=== PATIENT | female | born 1975 | race Caucasian/White ===

== ENCOUNTER → 2017-06-18 | Outpatient (CLI) | payer OTHER | LOC: FIMAGING 08:30 | PROVIDERS: ATTEND Family Medicine | CPT/HCPCS: G0202 ==

== ENCOUNTER 2018-12-07 09:39 | Inpatient (IN) | payer OTHER ==
[2018-12-07] MEDS ORDERED: methylPREDNISolone SOD SUCC 125 MG/2 ML VIAL IVP ONE (10:23)
[2018-12-07] MEDS ORDERED: IPRATROPIUM/ALBUTEROL 3 ML DEYVIAL IH ONE (10:23)
--- NOTE | 2018-12-07 10:25 | EDPHY ---
H & P Stated Complaint: N/V/D c cough (prod brown) x 1wk, denies bleeding, sent urgent care Time Seen by Provider: 12/07/18 10:11 HPI/ROS: CHIEF COMPLAINT: Cough x1 week HISTORY OF PRESENT ILLNESS: 43-year-old immunocompetent female with no history of reactive airways disease, daily tobacco abuse complaining of 8 days of productive cough, dyspnea, sore throat, myalgias. No influenza vaccination this season. No rash. No nausea or vomiting. No muscular flaccidity or weakness. No paralysis. PRIMARY CARE PROVIDER:Dr. Melissa Beyer REVIEW OF SYSTEMS: 10 systems reviewed and negative with the exception of the elements mentioned in the history of present illness PAST MEDICAL & SURGICAL HISTORY: no seasonal influenza vaccination.. No history of chronic respiratory distress. SOCIAL HISTORY: Daily tobacco abuse PHYSICAL EXAM (Prior to examination, patient consented to physical exam, hands were washed and my usual and customary physical exam procedures followed) 1) GENERAL: Well-developed, well-nourished, alert and oriented. Appears to be in no acute distress. 2) HEAD: Normocephalic, atraumatic 3) HEENT: Pupils equal, round, reactive to light bilaterally. Sclera anicteric. Nasopharynx, oropharynx, clear, no lesions. Moist Mucous membranes. No tonsillar enlargement or exudate Ears bilaterally with normal tympanic membranes. No evidence of otitis media otitis externa 4) NECK: Full range of motion, no meningeal signs. 5) LUNGS: Clear auscultation bilaterally, no wheezes, no rhonchi, no retractions. 6) HEART: Regular rate and rhythm, no murmur, no heave, no gallop. 7) ABDOMEN: No guarding, no rebound, no focal tenderness, negative McBurney's, negative Diaz's, negative Rovsing's, negative peritoneal sign, 8) MUSCULOSKELETAL: Moving all extremities, no focal areas of tenderness, no obvious trauma. No peripheral edema or discoloration. 9) BACK: No CVA tenderness, no midline vertebral tenderness, no fluctuance, no step-off, no obvious trauma, no visual or palpable abnormality. 10) SKIN: No rash, no petechiae. 11) Psychiatric: Patient is oriented X 3, there is no agitation. DIFFERENTIAL DIAGNOSIS: In no particular order including but limited to bronchitis, pneumonia, hypoxemia - Personal History Current Tetanus/Diphtheria Vaccine: No Tetanus Vaccine Date: 2006 - Medical/Surgical History Hx Asthma: No Hx Chronic Respiratory Disease: No Hx Diabetes: No Hx Cardiac Disease: No Hx Renal Disease: No Hx Cirrhosis: No Hx Alcoholism: No Hx HIV/AIDS: No Hx Splenectomy or Spleen Trauma: No Other PMH: med hx-bipolar. surg-none - Social History Smoking Status: Current some day smoker Constitutional: Initial Vital Signs Temperature (C) 36.8 C 12/07/18 09:53 Heart Rate 118 H 12/07/18 09:53 Respiratory Rate 20 12/07/18 09:53 Blood Pressure 98/71 L 12/07/18 09:53 O2 Sat (%) 83 L 12/07/18 09:53 O2 Delivery Mode Room Air O2 (L/minute) 3 Allergies/Adverse Reactions: No Known Allergies Allergy (Verified 12/07/18 09:52) Home Medications: Medication Instructions Recorded ARIPiprazole [Abilify] 15 mg PO DAILY 01/11/16 lamoTRIgine [LamICTAL 100 MG (*)] 300 mg PO DAILY 01/11/16 Amphet Asp and D/Amphet [Adderall 40 mg PO BID@,14 PRN 12/07/18 20 mg (*)] Ibuprofen [Motrin (*)] 400 mg PO DAILY PRN 12/07/18 LORazepam [Ativan 2 mg tab] 2 mg PO DAILY PRN 12/07/18 Valacyclovir HCl [Valtrex] 1,000 mg PO DAILY 12/07/18 Medical Decision Making - Diagnostics Imaging Results: Imaging Impressions Chest X-Ray 12/07/18 10:14 Impression: Bronchitis. Images reviewed myself ED Course/Re-evaluation: 10:25 a.m.: I have evaluated the patient. Discussed case with secondary supervising physician Dr. Yuan in the ER. Patient maintaining saturations of 83% on room air with bibasilar rales on exam, no history of influenza vaccination. Will plan on breathing treatment, Solu-Medrol, chest x-ray, fluids , more than likely admission of the patient's saturations do not improve. She is mentating clearly at this time. Doubt meningitis. 11:30 a.m.: Re-evaluation after DuoNeb treatment, feeling improvement. She has received IV Solu-Medrol. The patient was taken off of supplemental oxygen and pulse oxygenation was 83% while at rest. Will plan on admission. She is mentating clearly. 11:40 a.m.: Consultation with hospitalist, admit to hospitalist service - Data Points Laboratory Results: Laboratory Results 12/07/18 10:25 12/07/18 10:25 12/07/18 12/07/18 12/07/18 10:25 10:25 10:25 WBC 10.14 10^3/uL H 10^3/uL (3.80-9.50) RBC 4.83 10^6/uL 10^6/uL (4.18-5.33) Hgb 15.7 g/dL g/dL (12.6-16.3) Hct 45.5 % % (38.0-47.0) MCV 94.2 fL fL (81.5-99.8) MCH 32.5 pg pg (27.9-34.1) MCHC 34.5 g/dL g/dL (32.4-36.7) RDW 12.3 % % (11.5-15.2) Plt Count 279 10^3/uL 10^3/uL (150-400) MPV 10.0 fL fL (8.7-11.7) Neut % (Auto) 70.1 % % (39.3-74.2) Lymph % (Auto) 18.6 % % (15.0-45.0) Garfield % (Auto) 7.9 % % (4.5-13.0) Eos % (Auto) 0.1 % L % (0.6-7.6) Baso % (Auto) 0.8 % % (0.3-1.7) Nucleat RBC Rel Count 0.0 % % (0.0-0.2) Absolute Neuts (auto) 7.11 10^3/uL H 10^3/uL (1.70-6.50) Absolute Lymphs (auto) 1.89 10^3/uL 10^3/uL (1.00-3.00) Absolute Monos (auto) 0.80 10^3/uL 10^3/uL (0.30-0.80) Absolute Eos (auto) 0.01 10^3/uL L 10^3/uL (0.03-0.40) Absolute Basos (auto) 0.08 10^3/uL 10^3/uL (0.02-0.10) Absolute Nucleated RBC 0.00 10^3/uL 10^3/uL (0-0.01) Immature Gran % 2.5 % H % (0.0-1.1) Immature Gran # 0.25 10^3/uL H 10^3/uL (0.00-0.10) RBC/WBC/PLT Morphology TNP Platelet Estimate TNP PT 13.6 SEC SEC (12.0-15.0) INR 1.02 (0.83-1.16) APTT 23.2 SEC SEC (23.0-38.0) VBG Lactic Acid Sodium Potassium Chloride Carbon Dioxide Anion Gap BUN Creatinine Estimated GFR Glucose Calcium Total Bilirubin Beta HCG, Qual NEGATIVE 12/07/18 12/07/18 10:25 10:00 WBC RBC Hgb Hct MCV MCH MCHC RDW Plt Count MPV Neut % (Auto) Lymph % (Auto) Garfield % (Auto) Eos % (Auto) Baso % (Auto) Nucleat RBC Rel Count Absolute Neuts (auto) Absolute Lymphs (auto) Absolute Monos (auto) Absolute Eos (auto) Absolute Basos (auto) Absolute Nucleated RBC Immature Gran % Immature Gran # RBC/WBC/PLT Morphology Platelet Estimate PT INR APTT VBG Lactic Acid 1.0 mmol/L mmol/L (0.7-2.1) Sodium 135 mEq/L mEq/L (135-145) Potassium 3.5 mEq/L mEq/L (3.5-5.2) Chloride 99 mEq/L mEq/L (97-110) Carbon Dioxide 26 mEq/l mEq/l (22-31) Anion Gap 10 mEq/L mEq/L (6-14) BUN 10 mg/dL mg/dL (7-23) Creatinine 0.8 mg/dL mg/dL (0.6-1.0) Estimated GFR > 60 Glucose 109 mg/dL H mg/dL (70-100) Calcium 8.9 mg/dL mg/dL (8.5-10.4) Total Bilirubin 0.7 mg/dL mg/dL (0.1-1.4) Beta HCG, Qual Microbiology Results: MICROBIOLOGY 12/07/18 10:50 Nasal, Sinus - Swab Respiratory Panel (PCR) - Final No Organism Detected By Pcr Medications Given: Discontinued Medications Albuterol/Ipratropium (Duoneb) 3 ml IH EDNOW ONE Stop: 12/07/18 10:24 Last Admin: 12/07/18 10:37 Dose: 3 ml Sodium Chloride (Ns) 1,000 mls @ 0 mls/hr IV ONCE ONE PRN Reason: Wide Open Stop: 12/07/18 11:36 Last Admin: 12/07/18 11:53 Dose: 1,000 mls Methylprednisolone Sodium Succinate (Solu-Medrol) 125 mg IVP EDNOW ONE Stop: 12/07/18 10:24 Last Admin: 12/07/18 10:37 Dose: 125 mg Departure - Departure Disposition: [facility] Inpatient Acute Clinical Impression: Bronchitis, Hypoxia Condition: Fair
[2018-12-07 10:54] LABS: PLATELET COUNT 279 10^3/uL (150-400)
[2018-12-07 11:04] LABS: INR 1.02 (0.83-1.16); PROTIME(PATIENT) 13.6 SEC (12.0-15.0)
[2018-12-07] MEDS ORDERED: NS 1,000 ML IV ONE (11:35)
--- NOTE | 2018-12-07 12:35 | PDGENHP ---
History and Physical - Chief Complaint shortness of breath - History of Present Illness The patient is a very pleasant 43-year-old female with past medical history bipolar disorder, anxiety, tobacco abuse who presented to the emergency room with the complaints of worsening shortness of breath. She says that her symptoms started last with an upper respiratory tract infection. At that time she had a cough that was dry then she developed a sore throat. She then developed severe nausea vomiting and diarrhea that persisted until yesterday. She also complains of a sinus headache as well. Last night her shortness of breath worsened and she said that she felt very anxious like she could not breathe. Her symptoms were not positional and were present whether she was sitting up or lying flat. She says normally she is able to get her panic attacks under control with either Ativan or calming herself down and she was not able to do so last night and so this morning decided to come to the emergency room. She said that she coughed so hard that her ribs hurt but otherwise denied any chest pain, chills, fevers, abdominal pain or other symptoms. she denied any sick contacts or recent travel. History Information - Allergies/Home Medication List Allergies/Adverse Reactions: No Known Allergies Allergy (Verified 12/07/18 09:52) Home Medications: ARIPiprazole [Abilify] 15 mg PO DAILY 01/11/16 [Last Taken 12/07/18] lamoTRIgine [LamICTAL 100 MG (*)] 300 mg PO DAILY 01/11/16 [Last Taken 12/07/18] Amphet Asp and D/Amphet [Adderall 20 mg (*)] 40 mg PO BID@ PRN 12/07/18 [ Last Taken 1 Week Ago ~11/30/18] Ibuprofen [Motrin (*)] 400 mg PO DAILY PRN 12/07/18 [Last Taken 12/07/18] LORazepam [Ativan 2 mg tab] 2 mg PO DAILY PRN 12/07/18 [Last Taken Unknown] Valacyclovir HCl [Valtrex] 1,000 mg PO DAILY 12/07/18 [Last Taken 12/07/18] I have personally reviewed and updated: family history, medical history, social history, surgical history - Past Medical History Additional medical history: Bipolar disorder, panic attacks, HSV - Surgical History Additional surgical history: none - Family History Positive for: non-pertinent - Social History Smoking Status: Current some day smoker Tobacco Use: Greater than 1 pack/day Alcohol Use: Occasionally Drug Use: Marijuana Review of Systems Review of Systems: ROS: 10pt was reviewed & negative except for what was stated in HPI & below Physical Exam Physical Exam: Temp Pulse Resp BP Pulse Ox 36.8 C 101 H 16 107/91 H 93 12/07/18 09:53 12/07/18 11:53 12/07/18 11:53 12/07/18 11:53 12/07/18 11:53 O2 (L/minute) 2 Constitutional: no apparent distress, appears nourished, not in pain Eyes: PERRL, anicteric sclera, EOMI Ears, Nose, Mouth, Throat: moist mucous membranes, hearing normal, ears appear normal, no oral mucosal ulcers Cardiovascular: regular rate and rhythym, no murmur, rub, or gallop, No edema Respiratory: no respiratory distress, no rales or rhonchi, clear to auscultation Gastrointestinal: normoactive bowel sounds, soft, non-tender abdomen, no palpable masses Genitourinary: no bladder fullness, no bladder tenderness Skin: warm, normal color, no rashes or abrasions, no fluctuance, no induration, No mottled Musculoskeletal: full muscle strength, no muscle tenderness, normal joint ROM, no joint effusions Psychiatric: interacting appropriately, not anxious, not encephalopathic, thought process linear Lymph, Heme, Immunologic: no cervical LAD, no supraclavicular LAD Lab Data & Imaging Review 12/07/18 10:25 12/07/18 10:25 WBC 10.14 10^3/uL (3.80-9.50) H 12/07/18 10:25 RBC 4.83 10^6/uL (4.18-5.33) 12/07/18 10:25 Hgb 15.7 g/dL (12.6-16.3) 12/07/18 10:25 Hct 45.5 % (38.0-47.0) 12/07/18 10:25 MCV 94.2 fL (81.5-99.8) 12/07/18 10:25 MCH 32.5 pg (27.9-34.1) 12/07/18 10:25 MCHC 34.5 g/dL (32.4-36.7) 12/07/18 10:25 RDW 12.3 % (11.5-15.2) 12/07/18 10:25 Plt Count 279 10^3/uL (150-400) 12/07/18 10:25 MPV 10.0 fL (8.7-11.7) 12/07/18 10:25 Neut % (Auto) 70.1 % (39.3-74.2) 12/07/18 10:25 Lymph % (Auto) 18.6 % (15.0-45.0) 12/07/18 10:25 Orange % (Auto) 7.9 % (4.5-13.0) 12/07/18 10:25 Eos % (Auto) 0.1 % (0.6-7.6) L 12/07/18 10:25 Baso % (Auto) 0.8 % (0.3-1.7) 12/07/18 10:25 Nucleat RBC Rel Count 0.0 % (0.0-0.2) 12/07/18 10:25 Absolute Neuts (auto) 7.11 10^3/uL (1.70-6.50) H 12/07/18 10:25 Absolute Lymphs (auto) 1.89 10^3/uL (1.00-3.00) 12/07/18 10:25 Absolute Monos (auto) 0.80 10^3/uL (0.30-0.80) 12/07/18 10:25 Absolute Eos (auto) 0.01 10^3/uL (0.03-0.40) L 12/07/18 10:25 Absolute Basos (auto) 0.08 10^3/uL (0.02-0.10) 12/07/18 10:25 Absolute Nucleated RBC 0.00 10^3/uL (0-0.01) 12/07/18 10:25 Immature Gran % 2.5 % (0.0-1.1) H 12/07/18 10:25 Immature Gran # 0.25 10^3/uL (0.00-0.10) H 12/07/18 10:25 RBC/WBC/PLT Morphology TNP 12/07/18 10:25 Platelet Estimate TNP 12/07/18 10:25 PT 13.6 SEC (12.0-15.0) 12/07/18 10:25 INR 1.02 (0.83-1.16) 12/07/18 10:25 APTT 23.2 SEC (23.0-38.0) 12/07/18 10:25 VBG Lactic Acid 1.0 mmol/L (0.7-2.1) 12/07/18 10:00 Sodium 135 mEq/L (135-145) 12/07/18 10:25 Potassium 3.5 mEq/L (3.5-5.2) 12/07/18 10:25 Chloride 99 mEq/L (97-110) 12/07/18 10:25 Carbon Dioxide 26 mEq/l (22-31) 12/07/18 10:25 Anion Gap 10 mEq/L (6-14) 12/07/18 10:25 BUN 10 mg/dL (7-23) 12/07/18 10:25 Creatinine 0.8 mg/dL (0.6-1.0) 12/07/18 10:25 Estimated GFR > 60 12/07/18 10:25 Glucose 109 mg/dL (70-100) H 12/07/18 10:25 Calcium 8.9 mg/dL (8.5-10.4) 12/07/18 10:25 Total Bilirubin 0.7 mg/dL (0.1-1.4) 12/07/18 10:25 Beta HCG, Qual NEGATIVE 12/07/18 10:25 Chest X-Ray results: no infiltrate Assessment & Plan Assessment: Acute hypoxemic respiratory failure-chest x-ray shows no cardiomegaly, or infiltrate. It does however show peribronchial thickening consistent with bronchitis. She does not have substantial wheezing on examination, or crackles. She actually has fairly good air movement. When she takes deep breaths on room air she is saturating above 90%, but with any talking or exertion she desats quickly to mid 80s on room air. She has a mild leukocytosis. Case discussed with the emergency room physician who started her on Solu-Medrol and is checking a respiratory panel. -check procalcitonin -follow-up respiratory PCR -hold antibiotics for now -any clinical decompensation and start community-acquired pneumonia treatment -oxygen, nebs Bipolar disorder- continue Abilify and Lamictal Anxiety- patient states she has panic attacks, takes Ativan p.r.n. Will order p.o. Ativan while here Tobacco abuse- smoked up until a few days ago. About 1ppd. PRN patch. Prophylaxis- SCDs and Lovenox Fluids- intravenous saline Electrolytes- within normal limits Nutrition- regular diet Cor-full code Dispo- observation for acute hypoxemic respiratory failure, possible pneumonia or bronchitis
[2018-12-07] MEDS ORDERED: ALBUTEROL 3 ML DEYVIAL IH PRN (12:41)
[2018-12-07] MEDS ORDERED: ONDANSETRON DISINTEGRATING 4 MG TAB PO PRN (12:41)
[2018-12-07] MEDS ORDERED: ONDANSETRON 4 MG/2 ML VIAL IVP PRN (12:41)
[2018-12-07] MEDS: NS 1,000 ML IV SCH (13:56)
[2018-12-07] MEDS: AZITHROMYCIN IV 500 MG in NS 250 ML IV SCH (18:34)
[2018-12-07] MEDS: ACETAMINOPHEN 325 MG TAB PO PRN (22:04)
[2018-12-07] MEDS: LORazepam 0.5 MG TAB PO PRN (22:04)
[2018-12-08 05:19] LABS: PLATELET COUNT 292 10^3/uL (150-400)
[2018-12-08] MEDS: NS 1,000 ML IV SCH ×2 (06:35→22:39)
[2018-12-08] MEDS: valACYclovir 500 MG TAB PO SCH (08:59)
[2018-12-08] MEDS: lamoTRIgine 100 MG TAB PO SCH (09:00)
[2018-12-08] MEDS: ARIPiprazole 5 MG TAB PO SCH (09:01)
[2018-12-08] MEDS: ENOXAPARIN 40 MG/0.4 ML SYR SC SCH (09:01)
[2018-12-08] MEDS ORDERED: PNEUMOCOCCAL 0.5ML VACCINE VIAL (PNEUMOVAX 23) IM ONE (09:27)
[2018-12-08] MEDS: AZITHROMYCIN IV 500 MG in NS 250 ML IV SCH (10:14)
--- NOTE | 2018-12-08 11:37 | ASMTCMCOM ---
CM Note CM Note Notes: Patient w hx of BPD and anxiety d/o admitted for URI and flu-like symptoms. Imaging findings consistent w bronchitis. She will be treated supportively w continuation of home psych meds. She is normally independent, employed, . I do not anticipate any discharge needs. Current CM Discharge plan: independent Date Signed: 12/08/2018 11:37 AM Electronically Signed By:Winnie Guzmán RN
[2018-12-08] MEDS: predniSONE 20 MG TAB PO SCH (14:51)
--- NOTE | 2018-12-08 16:17 | HOSPPROG ---
Hospitalist Progress Note Assessment/Plan: Yuridia Andersen is a 43 year old female with pmh of bipolar, tobacco abuse, admitted with hypoxia. Acute hypoxemic respiratory failure-chest x-ray shows no cardiomegaly, or infiltrate. It does however show peribronchial thickening consistent with bronchitis. She does not have substantial wheezing on examination, with crackles at the bases. worse overnight, now requiring up to 5 liters to maintain sats at rest. white count of 15 wtih left shift -respiratory panel negative. -cont azithro and rocpehin. -prednisone burst. -oxygen, nebs Bipolar disorder- continue Abilify and Lamictal Anxiety- patient states she has panic attacks, takes Ativan p.r.n. Will order p.o. Ativan while here Tobacco abuse- smoked a ppd and marijuana until a few days ago. About 1ppd. PRN patch. Prophylaxis- SCDs and Lovenox Fluids- intravenous saline Electrolytes- within normal limits Nutrition- regular diet Cor-full code Dispo- inpatient for acute hypoxemic respiratory failure, possible pneumonia or bronchitis Subjective: feels breathing is better. but says that if she gets up and does anything she is extremely winded and feels very lethargic. Objective: Vital Signs Temp Pulse Resp BP Pulse Ox 36.7 C 99 18 121/73 H 99 12/08/18 07:32 12/08/18 15:43 12/08/18 15:43 12/08/18 15:43 12/08/18 15:43 Laboratory Results 12/08/18 04:55 12/08/18 04:55 12/07/18 12/08/18 12/09/18 05:59 05:59 05:59 Intake Total 1000 Output Total 800 Balance 200 PT 13.6 SEC (12.0-15.0) 12/07/18 10:25 INR 1.02 (0.83-1.16) 12/07/18 10:25 - Physical Exam Constitutional: no apparent distress, appears nourished, not in pain Eyes: PERRL, anicteric sclera, EOMI Ears, Nose, Mouth, Throat: moist mucous membranes, hearing normal, ears appear normal, no oral mucosal ulcers Cardiovascular: regular rate and rhythym, no murmur, rub, or gallop Respiratory: reduced air movement, expiratory wheeze, inspiratory crackles Gastrointestinal: normoactive bowel sounds, soft, non-tender abdomen, no palpable masses Genitourinary: no bladder fullness, no bladder tenderness, no renal bruits Skin: no rashes or abrasions, no fluctuance, no induration Musculoskeletal: full muscle strength, no muscle tenderness, normal joint ROM Neurologic: AAOx3, sensation intact bilaterally Psychiatric: interacting appropriately, not anxious, not encephalopathic, thought process linear Lymph, Heme, Immunologic: no cervical LAD, no supraclavicular LAD ICD10 Worksheet Patient Problems: Problems Problem Status Onset Bronchitis Acute Hypoxia Acute
--- NOTE | 2018-12-08 22:14 | PDMN ---
Medical Necessity Medical necessity: Change to inpt as of 12/08/18 @ 16:18, meets criteria per MD order and Systemic or Infectious Condition GRG. 43 y/o admitted w/acute hypoxemic resp failure, CXR consistent w/bronchitis. Upgraded to inpt for persistent hypoxia requiring 5 LO2 to maintain sats at rest, possible PNA or bronchitis. IVF, IV ABX's, Neb tx's, anticipate>2MN for ongoing management of above.
[2018-12-08] MEDS: LORazepam 0.5 MG TAB PO PRN (22:38)
[2018-12-08] MEDS: ACETAMINOPHEN 325 MG TAB PO PRN (22:38)
[2018-12-09] MEDS: predniSONE 20 MG TAB PO SCH (08:11)
[2018-12-09] MEDS: ENOXAPARIN 40 MG/0.4 ML SYR SC SCH (08:11)
[2018-12-09] MEDS: valACYclovir 500 MG TAB PO SCH (08:11)
[2018-12-09] MEDS: lamoTRIgine 100 MG TAB PO SCH (08:11)
[2018-12-09] MEDS: ARIPiprazole 5 MG TAB PO SCH (08:12)
[2018-12-09] MEDS: AZITHROMYCIN IV 500 MG in NS 250 ML IV SCH (09:31)
--- NOTE | 2018-12-09 15:32 | HOSPPROG ---
Hospitalist Progress Note Assessment/Plan: Yuridia Andersen is a 43 year old female with pmh of bipolar, tobacco abuse, admitted with hypoxia. Acute hypoxemic respiratory failure-chest x-ray shows no cardiomegaly, or infiltrate. It does however show peribronchial thickening consistent with bronchitis. Was initially not doing well, with oxygen requirement up to 5 liters, poor air movement and wheezing. started on prednisone burst with substantial improvement overnight. Now down to 1-2 liters with remarkable clinical improvement as well. -respiratory panel negative. -cont azithro and rocpehin. -prednisone burst. -oxygen, nebs Bipolar disorder- continue Abilify and Lamictal Anxiety- patient states she has panic attacks, takes Ativan p.r.n. Will order p.o. Ativan while here Tobacco abuse- smoked a ppd and marijuana until a few days ago. About 1ppd. PRN patch. Prophylaxis- SCDs and Lovenox Fluids- intravenous saline Electrolytes- within normal limits Nutrition- regular diet Cor-full code Dispo- inpatient for acute hypoxemic respiratory failure, possible pneumonia or bronchitis Subjective: feels much better. still very winded with exertion. Objective: Vital Signs Temp Pulse Resp BP Pulse Ox 36.8 C 95 16 119/72 89 L 12/09/18 11:48 12/09/18 14:29 12/09/18 14:29 12/09/18 11:48 12/09/18 14:29 PT 13.6 SEC (12.0-15.0) 12/07/18 10:25 INR 1.02 (0.83-1.16) 12/07/18 10:25 - Physical Exam Constitutional: no apparent distress, appears nourished, not in pain Eyes: PERRL, anicteric sclera, EOMI Ears, Nose, Mouth, Throat: moist mucous membranes, hearing normal, ears appear normal, no oral mucosal ulcers Cardiovascular: regular rate and rhythym, no murmur, rub, or gallop Respiratory: no respiratory distress, no rales or rhonchi, clear to auscultation Gastrointestinal: normoactive bowel sounds, soft, non-tender abdomen, no palpable masses Genitourinary: no bladder fullness, no bladder tenderness, no renal bruits Skin: no rashes or abrasions, no fluctuance, no induration Musculoskeletal: full muscle strength, no muscle tenderness, normal joint ROM Neurologic: AAOx3, sensation intact bilaterally Psychiatric: interacting appropriately, not anxious, not encephalopathic, thought process linear Lymph, Heme, Immunologic: no cervical LAD, no supraclavicular LAD ICD10 Worksheet Patient Problems: Problems Problem Status Onset Bronchitis Acute Hypoxia Acute
[2018-12-09] MEDS ORDERED: CALCIUM CARBONATE 500 MG TAB PO PRN (19:51)
[2018-12-09] MEDS: ACETAMINOPHEN 325 MG TAB PO PRN (20:10)
[2018-12-09] MEDS: LORazepam 0.5 MG TAB PO PRN (20:11)
[2018-12-09] MEDS ORDERED: CALCIUM CARBONATE 500 MG CHEWABLE TAB PO PRN (20:30)
[2018-12-10] MEDS: lamoTRIgine 100 MG TAB PO SCH (08:06)
[2018-12-10] MEDS: valACYclovir 500 MG TAB PO SCH (08:06)
[2018-12-10] MEDS: predniSONE 20 MG TAB PO SCH (08:06)
[2018-12-10] MEDS: ENOXAPARIN 40 MG/0.4 ML SYR SC SCH (08:07)
[2018-12-10] MEDS: ARIPiprazole 5 MG TAB PO SCH (08:07)
[2018-12-10] MEDS: AZITHROMYCIN IV 500 MG in NS 250 ML IV SCH (08:41)
[2018-12-10 12:06] VITALS: BP 118/82
--- NOTE | 2018-12-10 13:39 | GDS ---
[f rep st] DISCHARGE SUMMARY DISCHARGE DIAGNOSES: 1. Acute hypoxemic respiratory failure. 2. Bronchitis. 3. Bipolar disorder. 4. Suspected postviral reactive airway flare. 5. Anxiety. 6. Tobacco abuse. HISTORY OF PRESENT ILLNESS: A 43-year-old female with bipolar disorder, anxiety, tobacco dependence (2 packs a day), presents with shortness of breath. Symptoms started a week ago with a URI. Please not spot abbreviation. At that time, she had a dry cough and a sore throat. Both her son and daught er were sick with a cold. HOSPITAL COURSE BY PROBLEM: 1. Acute hypoxemic respiratory failure as indicated by oxygen of 73% on room air during initial admi ssion. Suspect secondary to recent URI and post reactive airways flare. Symptoms now resolved after receiving antibiotics and prednisone. She is stable on room air. We will continue azithromycin and prednisone for 1 more day. 2. Tobacco dependence: She is counseled on cessation, along with marijuana inhalation. 3. Anxiety/bipolar disorder. Continue home medications. DISPOSITION: Patient is stable for discharge home. NEW MEDICATION: 1. Prednisone. 2. Azithromycin. PHYSICAL EXAM: VITAL SIGNS: Today temperature 36.4, blood pressure 118/82, heart rate in the 80s, r espirations 16, 94% on room air. GENERAL: She is obese. No acute distress. HEENT: PERRLA. Moist mucous membranes. CVS: Regular rate and rhythm. LUNGS: Clear. No crackles or wheezing. ABDOMEN : Soft, nontender, nondistended. Positive bowel sounds. : No Cage. MUSCULOSKELETAL: Moving a ll 4 extremities. NEURO: 2 through 12 intact. PSYCH: Alert and oriented x3. TIME SPENT ON DISCHARGE: Greater than 30 minutes at bedside counseling patient on medicationslesly. /[id number]/MODL
== END 2018-12-10 13:44 | disposition home or self-care (01) | DRG 189 ==
LOC: F3E 12:47 → OBSVTOIN 12-08 16:18
PROVIDERS: ADMIT Internal Medicine; ATTEND Internal Medicine
DX: J96.01 Acute respiratory failure with hypoxia (principal); J40 Bronchitis, not specified as acute or chronic; F31.9 Bipolar disorder, unspecified; F41.9 Anxiety disorder, unspecified; F17.210 Nicotine dependence, cigarettes, uncomplicated; J06.9 Acute upper respiratory infection, unspecified; Z23 Encounter for immunization
CPT/HCPCS: 96374; G0008; G0009; G0378; J0456; J0696; J1650; J2930; J7512